=== PATIENT | male | born 1950 | race Caucasian/White ===

== ENCOUNTER 2022-05-03 18:03 | Emergency (ER) | payer OTHER ==
[2022-05-03 18:25] VITALS: TEMP 98.6; BMI 29.5
[2022-05-03 18:52] LABS: HEMATOCRIT 26.1 % (35.4-49); HEMOGLOBIN 8.9 G/dL (11.7-16.9); MCH 27.9 pg (25.7-33.7); MCHC 34.1 g/dl (32.0-35.9); MEAN CELL VOLUME 81.7 fl (80-96); MEAN PLT VOLUME 7.5 fl (7.5-11.1); PLATELET COUNT 174.4 10^3/uL (134-434); RBC 3.19 10^6/uL (4.00-5.60); RDW 17.2 % (11.9-15.9); WHITE BLOOD COUNT 6.6 10^3/uL (4.0-10.8)
[2022-05-03 19:07] LABS: ALBUMIN 3.9 g/dl (3.4-5.0); BILIRUBIN,TOTAL 0.5 mg/dl (0.2-1); CALCIUM 9.3 mg/dl (8.5-10); CREATININE 1.4 mg/dl (0.55-1.3); TOT PROT 6.9 g/dl (6.4-8.2)
[2022-05-03] MEDS ORDERED: KETOROLAC TROMETHAMINE 30 MG/1 ML VIAL IVPUSH STA (20:15)
[2022-05-03] MEDS ORDERED: KETOROLAC TROMETHAMINE 30 MG/1 ML VIAL ONE (20:17)
[2022-05-03 20:38] VITALS: BP 130/69; PULSE 66; RESP 16
== END 2022-05-03 20:41 | disposition home or self-care (01) ==
LOC: FER 18:03
PROC: 3E0333Z Introduction of Anti-inflammatory into Peripheral Vein, Percutaneous Approach (ICD-10-PCS; principal; 2022-05-03)
DX: R55 Syncope and collapse (principal); R07.9 Chest pain, unspecified
CPT/HCPCS: 0241U-QW; 36415; 71045-TC-FY; 80053; 84484; 85027; 93005; 99285-25

== ENCOUNTER 2023-05-24 11:14 | Emergency (ER) | payer OTHER ==
[2023-05-24 11:56] VITALS: BP 139/85; PULSE 79; RESP 18; TEMP 97.5; BMI 30.2
[2023-05-24] MEDS ORDERED: KETOROLAC TROMETHAMINE 15 MG/ML VIAL IVPUSH ONE (11:57)
[2023-05-24] MEDS ORDERED: KETOROLAC TROMETHAMINE 15 MG/ML VIAL ONE (12:06)
[2023-05-24 12:25] LABS: ALBUMIN 4.6 g/dl (3.4-5.0); BILIRUBIN,TOTAL 0.4 mg/dl (0.2-1); BLOOD UREA NITROGEN 36.2 mg/dl (7-18); CALCIUM 9.5 mg/dl (8.5-10.1); CREATININE 1.6 mg/dl (0.6-1.3); POTASSIUM 5.8 mmol/L (3.5-5.1); SGOT/AST 14.5 U/L (15-37); SGPT/ALT 16.7 U/L (7-52); TOT PROT 7.3 g/dl (6.4-8.2)
[2023-05-24 12:51] LABS: HEMATOCRIT 30.1 % (35.4-49); MCH 27.1 pg (25.7-33.7); MCHC 33.2 g/dl (32.0-35.9); MEAN CELL VOLUME 81.8 fl (80-96); MEAN PLT VOLUME 7.8 fl (7.5-11.1); PLATELET COUNT 211.8 10^3/uL (134-434); RBC 3.68 10^6/uL (4.00-5.60); RDW 17.8 % (11.9-15.9); WHITE BLOOD COUNT 6.7 10^3/uL (4.0-10.8)
[2023-05-24 13:02] LABS: PLATELET ESTIMATE ADEQUATE
[2023-05-24 15:23] LABS: LACTIC ACID 2.3 mmol/L (0.4-2.0)
== END 2023-05-24 14:38 | disposition home or self-care (01) ==
LOC: FER 11:14
PROC: 3E033NZ Introduction of Analgesics, Hypnotics, Sedatives into Peripheral Vein, Percutaneous Approach (ICD-10-PCS; principal; 2023-05-24)
DX: R10.11 Right upper quadrant pain (principal); M54.9 Dorsalgia, unspecified; K80.50 Calculus of bile duct without cholangitis or cholecystitis without obstruction; D64.9 Anemia, unspecified; R74.8 Abnormal levels of other serum enzymes
CPT/HCPCS: 36415; 71046-TC-FY; 71250-TC; 74176-TC; 76705-TC; 80053; 81003; 83605; 83690; 84484; 85027; 93005; 99285-25

== ENCOUNTER 2025-01-09 14:43 | Emergency (ER) | payer OTHER ==
[2025-01-09 14:55] VITALS: TEMP 98.1; BMI 31.3
[2025-01-09] MEDS: SODIUM CHLORIDE 0.9% 500 ML INFUS.BAG IV ONE (15:20)
[2025-01-09] MEDS ORDERED: ONDANSETRON 4 MG/2 ML VIAL ONE (15:24)
[2025-01-09 15:36] LABS: HEMATOCRIT 36.4 % (40.1-51.0); HEMOGLOBIN 11.8 g/dL (13.7-17.5); INR 1.09 (0.83-1.09); MCHC 32.4 g/dl (32.3-36.5); MEAN CELL VOLUME 89.2 fl (79.0-92.2); MEAN PLT VOLUME 9.8 fl (9.4-12.4); PLATELET COUNT 193 x10^3/uL (163-337); PROTHROMBIN TIME (PATIENT) 12.1 SEC (9.7-13.0); RDW 13.5 % (12.2-16.6)
[2025-01-09 15:39] LABS: ACTIVATED PTT 29.9 SECONDS (25.2-36.5)
[2025-01-09] MEDS ORDERED: FAMOTIDINE 20 MG/50 ML IVPB 20 MG/50 ML MG IVPB ONE (15:40)
[2025-01-09] MEDS: ONDANSETRON 4 MG/2 ML VIAL IVPUSH ONE (15:40)
[2025-01-09 15:48] LABS: ALBUMIN 4.6 g/dl (3.4-5.0); BILIRUBIN,TOTAL 0.6 mg/dl (0.2-1); CALCIUM 9.3 mg/dl (8.5-10.1); CREATININE 2.1 mg/dl (0.6-1.3); MAGNESIUM 1.8 mg/dL (1.8-2.4); POTASSIUM 4.3 mmol/L (3.5-5.1); TOT PROT 7.6 g/dl (6.4-8.2)
[2025-01-09 19:06] VITALS: BP 138/71; PULSE 78; RESP 16
[2025-01-09 19:06] LABS: HCV DIAGNOSTIC IN-HOUSE W/RFLX NON-REACTIVE (NONREACTIVE); HIV INTERPRETATION NEGATIVE (NEGATIVE)
== END 2025-01-09 19:45 | disposition home or self-care (01) ==
LOC: FER 14:43
PROC: 3E033GC Introduction of Other Therapeutic Substance into Peripheral Vein, Percutaneous Approach (ICD-10-PCS; principal; 2025-01-09)
DX: R55 Syncope and collapse (principal); K52.9 Noninfective gastroenteritis and colitis, unspecified; R42 Dizziness and giddiness; R11.2 Nausea with vomiting, unspecified; R61 Generalized hyperhidrosis; R63.8 Other symptoms and signs concerning food and fluid intake; S00.33XA Contusion of nose, initial encounter; J02.9 Acute pharyngitis, unspecified; R10.13 Epigastric pain; W19.XXXA Unspecified fall, initial encounter; Y92.002 Bathroom of unspecified non-institutional (private) residence as the place of occurrence of the external cause
CPT/HCPCS: 0241U-QW; 36415; 70450-TC; 70486-TC; 71045-TC-FY; 72125-TC; 72131-TC; 74176-TC; 80053; 81003; 81015; 82962; 83690; 83735; 84484; 85027; 85610; 85730; 86803; 86850; 86900; 86901; 87077; 87086; 87389; 93005; 99285-25